=== PATIENT | female | born 1935 | race Caucasian/White ===

== ENCOUNTER → 2022-10-21 12:51 | Outpatient (CLI) | payer MEDICARE, OTHER, SELFPAY ==
--- NOTE | 2022-10-21 | DI.RAD.S_ITS ---
PROCEDURE: FL BARIUM SWALLOW INDICATIONS: DYSPHAGIA COMPARISON: None. FINDINGS: Function: There is severely weakened esophageal peristalsis, resulting in stasis of contrast and tertiary contractions. Severe gastroesophageal reflux. Morphology: Single contrast views show no esophageal strictures, extrinsic mass effects, or diverticula. Limited images of the stomach demonstrate normal appearance. IMPRESSION: Severe esophageal dysmotility and gastroesophageal reflux. Dictated by: Jarrell Walters M.D. on 10/21/2022 at 15:18 Approved by: Jarrell Walters M.D. on 10/21/2022 at 15:19
== END ==
PROVIDERS: PCP Nurse Practitioner; Referring Provider Nurse Practitioner; Visit Provider Nurse Practitioner
DX: K22.4 Dyskinesia of esophagus (principal); R13.10 Dysphagia, unspecified; K21.9 Gastro-esophageal reflux disease without esophagitis
CPT/HCPCS: 74220

== ENCOUNTER 2023-03-15 09:31 | Day surgery (SDC) | payer MEDICARE, OTHER, SELFPAY ==
--- NOTE | 2023-03-15 | PATH_ITS ---
[facility] Accession Number: [id number] No. of containers..01 Tissue . 01 Material submitted: . body - GASTRIC POLYP . 01 Clinical history: . H. PYLORI 03/21/2023 BIOPSY SITE VERIFIED BY CECY (DIDIER)Carmita JOHNSON . 01 Diagnosis: STOMACH, POLYP, BIOPSY: - OXYNTIC GASTRIC MUCOSA WITH SUBTLE HISTOLOGIC CHANGES SUGGESTIVE OF FUNDIC GLAND POLYP. - NO H. PYLORI LIKE ORGANISMS IDENTIFIED (ON THE H/E-STAINED SECTIONS). - NEGATIVE FOR GASTRITIS, INTESTINAL METAPLASIA, DYSPLASIA OR MALIGNANCY. TXN 03/21/2023 1221 Local . 01 Electronically signed: . Mini Lockwood MD, Pathologist NPI- [id number] . 01 Gross description: . The specimen is received in formalin labeled with the patient's name, , and polyp/H. pylori, consists of three garces soft tissue fragments ranging from 0.2 to 0.3 cm in greatest dimension. Submitted entirely in cassette A1. ([id number]) /MRV 03/17/2023 1528 Local . 01 Pathologist provided ICD-10: R13.10 . 01 CPT . 823832 Specimen Comment: A courtesy copy of this report has been sent to [phone] Performed at: 01 [facility] [address] [place] [address] [address], [place], [place] [id number] MD Brian Whitaker MD Phone: [phone]
[2023-03-15 10:16] VITALS: BMI 21.9
[2023-03-15 10:21] VITALS: BP 180/88; PULSE 88; RESP 20; TEMP 36.7; O2SAT 99
--- NOTE | 2023-03-15 10:57 | PM.HP.1 ---
History of Present Illness History of Present Illness Date Patient Seen: 03/15/23 Chief complaint: SDC Narrative: Episodes of epigastric pain postprandially. Also lower substernal dysphagia at times. Rule out upper tract pathology PFSH Social History Smoking Status: Never smoker alcohol intake: current Meds Home Medications and Allergies Home Medications Medication Instructions Recorded Confirmed Type lisinopril 10 mg tablet 10 mg PO DAILY 03/15/23 03/15/23 History mirtazapine 15 mg tablet 15 mg PO ONCE PM 03/15/23 03/15/23 History omeprazole 20 mg capsule,delayed 20 mg PO DAILY 03/15/23 03/15/23 History release propranolol 10 mg tablet 20 mg PO BID 03/15/23 03/15/23 History Allergies Allergy/AdvReac Type Severity Reaction Status Date / Time codeine [CODEINE] Allergy Unknown Unverified 10/04/17 12:30 Exam Vital Signs (past 8 hours): - 03/15/23 10:21 Temperature 98.0 F Pulse Rate 88 Respiratory Rate 20 Blood Pressure 180/88 H Pulse Oximetry 99 Oxygen Delivery Method Room Air Oxygen Delivery Method Room Air Narrative Exam Narrative: Oropharynx free of lesions Chest clear to auscultation percussion Cardiac exam reveals no S3 or murmur Assessment & Plan Assessment & Plan narrative: Postprandial abdominal pain and lower substernal dysphagia rule out mechanical cause for dysphagia rule out peptic disease. Risks, benefits, alternatives have been explained.
--- NOTE | 2023-03-15 10:59 | PM.OP.EGD ---
Operative Date/Time/Diagnoses Date of procedure: 03/15/23 Procedure & Clinicians Study performed: EGD Indications: Lower substernal dysphagia and postprandial epigastric pain Surgeon: Norma Whitfield Procedure Notes Procedure in detail: After informed consent was obtained the patient was placed in left lateral decubitus position. The video upper scope was placed into the oropharynx and with the patient's help swallowed into the esophagus. The esophagus stomach and duodenum were carefully examined. On withdrawal, retroflexed view the GE junction was performed. The scope was removed. The patient tolerated procedure well. Blood loss none Complications none Sedation mac Findings 1. No evidence for a mechanical lesion as the cause of lower substernal dysphagia 2. 3-4 cm sliding hiatal hernia 3. Two polyps sampled in the cardia 4. Gastric erythema biopsies taken to rule out Helicobacter. Biopsies placed in same bottle as #3. 5. 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 Photographs taken 6. Normal duodenal bulb and sweep No clear source of her abdominal pain present here. Will review her chart and previous workup to decide on next steps.
[2023-03-15 11:54] VITALS: BP 109/60; PULSE 62; RESP 15; TEMP 36.2; O2SAT 96
[2023-03-15 11:59] VITALS: BP 112/62; PULSE 64; RESP 13; O2SAT 95
[2023-03-15 12:05] VITALS: BP 130/74; PULSE 69; RESP 17; TEMP 36.2; O2SAT 99
[2023-03-15 12:10] VITALS: BP 130/74; PULSE 63; RESP 16; TEMP 36.2; O2SAT 98
[2023-03-15 12:14] VITALS: BP 137/70; PULSE 58; RESP 16; TEMP 36.2; O2SAT 98
--- NOTE | 2023-03-15 12:34 | P.HP_ITS ---
History of Present Illness History of Present Illness Date Patient Seen: 03/15/23 Chief complaint: SDC Narrative: Episodes of epigastric pain postprandially. Also lower substernal dysphagia at times. Rule out upper tract pathology [facility] Social History Smoking Status: Never smoker alcohol intake: current Meds Home Medications and Allergies Home Medications Medication Instructions Recorded Confirmed Type lisinopril 10 mg tablet 10 mg PO DAILY 03/15/23 03/15/23 History mirtazapine 15 mg tablet 15 mg PO ONCE PM 03/15/23 03/15/23 History omeprazole 20 mg capsule,delayed 20 mg PO DAILY 03/15/23 03/15/23 History release propranolol 10 mg tablet 20 mg PO BID 03/15/23 03/15/23 History Allergies Allergy/AdvReac Type Severity Reaction Status Date / Time codeine [CODEINE] Allergy Unknown Unverified 10/04/17 12:30 Exam Vital Signs (past 8 hours): - 03/15/23 10:21 03/15/23 11:54 03/15/23 12:10 Temperature 98.0 F 97.1 F L 97.1 F L Pulse Rate 88 62 63 Respiratory Rate 20 15 16 Blood Pressure 180/88 H 109/60 130/74 Pulse Oximetry 99 96 98 Oxygen Delivery Method Room Air Room Air Room Air Oxygen Flow Rate 0 0 03/15/23 12:14 03/15/23 11:59 03/15/23 12:05 Temperature 97.1 F L 97.1 F L Pulse Rate 58 L 64 69 Respiratory Rate 16 13 17 Blood Pressure 137/70 112/62 130/74 Pulse Oximetry 98 95 99 Oxygen Delivery Method Room Air Room Air Room Air Oxygen Flow Rate 0 0 0 Oxygen Delivery Method Room Air Oxygen Flow Rate 0
== END 2023-03-15 12:38 | disposition home or self-care (01) ==
PROVIDERS: PCP Nurse Practitioner; Referring Provider Internal Medicine Gastroenterology; Visit Provider Internal Medicine Gastroenterology
PROC: 0DJ08ZZ Inspection of Upper Intestinal Tract, Via Natural or Artificial Opening Endoscopic (ICD-10-PCS; CPT 43235; principal; 2023-03-15 11:00)
DX: R13.19 Other dysphagia (principal); K44.9 Diaphragmatic hernia without obstruction or gangrene; K31.7 Polyp of stomach and duodenum
CPT/HCPCS: 43239; J2704